=== PATIENT | female | born 1940 | race Caucasian/White ===

== ENCOUNTER 2019-07-26 08:49 | Day surgery (SDC) | payer OTHER ==
[2019-07-26] MEDS ORDERED: Ringers Lactate 1,000 ML IV ONE (09:45)
[2019-07-26] MEDS ORDERED: CEFAZOLIN/SWI 1gm 1 GM/10 ML SYR ONE (09:46)
[2019-07-26] MEDS ORDERED: propofoL 200 MG/20 ML VIAL IV ONE (10:20)
[2019-07-26] MEDS ORDERED: FENTANYL CITR 100 MCG/2 ML ONE ×2 (10:21→10:53)
[2019-07-26] MEDS ORDERED: ONDANSETRON 4 MG/2 ML VIAL ONE (10:24)
[2019-07-26] MEDS ORDERED: LIDOCAINE 1% MPF 2 ML AMPULE ONE (10:35)
[2019-07-26] MEDS ORDERED: dexAMETHasone 10 MG/ML VIAL ONE (10:47)
[2019-07-26] MEDS ORDERED: GLYCOPYRROLATE 0.2 MG/ML SYR ONE (11:07)
[2019-07-26] MEDS ORDERED: PROMETHAZINE INJ 25 MG/ML AMP ONE (11:39)
[2019-07-26 13:32] VITALS: TEMP 98.6
[2019-07-26 15:01] VITALS: BP 154/82; O2SAT 96
--- NOTE | 2019-07-26 21:52 | OP ---
Date of Procedure: 07/26/2019 Surgeon: Allen Patel MD Preoperative Diagnosis: Right groin mass. Postoperative Diagnosis: Right groin mass. Procedure: Wide excision, right groin mass, 14.5 cm x 7.5 cm with layered closure and frozen section . Estimated Blood Loss: Minimal. Specimen: Right groin mass. Findings: Margins to be free. Anesthesia: General. Complications: None. Disposition: Patient tolerated the procedure in stable condition, taken to Recovery in good general condition. Procedure In Detail: Patient was brought to the OR and placed in supine position. General anesthesi a was begun. Patient was prepped and draped in usual sterile fashion and then Marcaine 0.5% was infi ltrated locally. Then 15-blade was used to make a 14.5 x 7.5 cm to excise this large 5 cm ulcerated mass with negative margins grossly. Subcutaneous tissue divided, and deep to the subcutaneous tissue , the base of the mass excised and sent to Pathology and it was evaluated in the lab and the margins were free and then wound irrigated and bleeding controlled with cautery. Flaps created. A Rafael d rain quarter-inch placed to secure with 3-0 nylon, 2-0 chromic used to approximate subcutaneous tissu e, and wilian used to close the skin. Sterile dressing was applied. Patient was awakened and taken to Recovery in good general condition. Discharge Note: The patient going to Day Surgery, then home when stable. Disposition: Home. Condition: Stable. Discharge Instructions: Resume home medications and diet. Activity as tolerated. Keep dressing claudine an and dry, reinforce p.r.n. Ultracet 1 tablet p.o. q.4 p.r.n. pain and Keflex 500 mg p.o. q.8. I w ill see the patient next week at the long-term. /MODL Voice ID: [id number] Report ID: [id number]
== END 2019-07-26 14:35 | disposition home or self-care (01) ==
LOC: OR 08:49
PROVIDERS: ATTEND Surgery
PROC: 0HBAXZZ Excision of Inguinal Skin, External Approach (ICD-10-PCS; principal; 2019-07-26 10:30)
DX: C44.599 Other specified malignant neoplasm of skin of other part of trunk (principal); I10 Essential (primary) hypertension; Z88.6 Allergy status to analgesic agent; Z88.8 Allergy status to other drugs, medicaments and biological substances
CPT/HCPCS: 88305; 11606; J2704; J2550; J3010 ×2; J1100; J2001; J0690; J7120; J2405

== ENCOUNTER 2019-10-02 08:15 | Emergency (ER) | payer OTHER ==
--- NOTE | 2019-10-02 08:49 | RAD REPORT ---
EXAM DESCRIPTION: CT - Head Brain Wo Cont - 10/02/2019 8:41 am CLINICAL HISTORY: HEADACHE Headache, drowsiness COMPARISON: HEAD BRAIN W O CONTRAST dated 11/16/2009 TECHNIQUE: All CT scans are performed using dose optimization technique as appropriate and may inclu de automated exposure control or mA/KV adjustment according to patient size. FINDINGS: No intracranial hemorrhage, hydrocephalus or extra-axial fluid collection.Moderate general ized brain atrophy is present with mild periventricular and deep white matter chronic microvascular i schemic changes.No areas of brain edema or evidence of midline shift. The paranasal sinuses and mastoids are clear. The calvarium is intact. IMPRESSION: No acute intracranial abnormality.
--- NOTE | 2019-10-02 09:17 | RAD REPORT ---
EXAM DESCRIPTION: RAD - Knee Right 3 View - 10/02/2019 9:08 am CLINICAL HISTORY: PAIN COMPARISON: No comparisons FINDINGS: Severe tricompartmental osteoarthritis is present. No gross evidence of acute fracture. No significant joint effusion.
--- NOTE | 2019-10-02 09:17 | RAD REPORT ---
EXAM DESCRIPTION: RAD - Knee Left 3 View - 10/02/2019 9:08 am CLINICAL HISTORY: PAIN Fall, pain COMPARISON: No comparisons FINDINGS: Advanced tricompartmental osteoarthritis is present, greatest involving the lateral compar tment. No acute fracture or dislocation. Trace suprapatellar joint effusion.
--- NOTE | 2019-10-02 09:43 | ER ---
Nurse's Notes [facility] Name: Rosa Nuñez Age: 79 yrs Sex: Female : 1940 Arrival Date: 10/02/2019 Time: 08:17 Bed 6 Private MD: Diagnosis: Fall from bed;Unspecified superficial injury of unspecified part of head;Pain in right knee;Pain in left knee Presentation: 10/01 08:18 Chief complaint: EMS states: UNWITNESSED FALL, NO LOC, NO BLOOD THINNERS. Coronavirus bp screen: Proceed with normal triage. Ebola Screen: No symptoms or risks identified at this time. Initial Sepsis Screen: Does the patient meet any 2 criteria? No. Patient's initial sepsis screen is negative. Does the patient have a suspected source of infection? No. Patient's initial sepsis screen is negative. Risk Assessment: Do you want to hurt yourself or someone else? Patient reports no desire to harm self or others. Onset of symptoms was October 02, 2019 at 05:45. 08:18 Method Of Arrival: EMS: [facility] bp 08:18 Acuity: JOANN 4 bp Triage Assessment: 08:21 General: Appears in no apparent distress. comfortable, Behavior is cooperative, bp appropriate for age, anxious. Pain: Complains of pain in GENERALIZED. EENT: No deficits noted. Neuro: No deficits noted. Cardiovascular: No deficits noted. Respiratory: No deficits noted. GI: No signs and/or symptoms were reported involving the gastrointestinal system. : No signs and/or symptoms were reported regarding the genitourinary system. Derm: No deficits noted. Musculoskeletal: No deficits noted. Injury Description: Bruise sustained to scalp. Historical: - Allergies: 08:21 Codeine; bp 08:21 NSAIDS; bp - PMHx: 08:21 Hyperlipidemia; Depression; Anxiety; Panic Attacks; Hypertension; OCD; GERD; bp - Immunization history:: Adult Immunizations up to date. - Social history:: Smoking status: Patient denies any tobacco usage or history of. Screenin:23 Abuse screen: Denies threats or abuse. Denies injuries from another. Nutritional bp screening: No deficits noted. Tuberculosis screening: No symptoms or risk factors identified. Fall Risk Fall in past 12 months (25 points). Secondary diagnosis (15 points) dementia, impaired mobility. Assessment: 08:23 General: SEE TRIAGE NOTE. bp 09:10 Reassessment: ALL CURRENT ORDERS COMPLETED, RAD RESULTS PENDING. NO S/S ACUTE DISTRESS bp AT THIS TIME. 09:52 Reassessment: PT [facility] CONTACTED FOR TRANSPORT HOME. W/C VAN PENDING. bp 10:19 Reassessment: [facility] AT B/S. PT OSITO. bp Vital Signs: 08:18 BP 154 / 53; Pulse 85; Resp 16; Temp 97.8; Pulse Ox 95% ; bp 09:10 BP 157 / 74; Pulse 75; Resp 17; Pulse Ox 95% ; bp 09:42 BP 163 / 80; Pulse 78; Resp 17; Pulse Ox 95% ; sv ED Course: 08:17 Patient arrived in ED. bp 08:17 Esvin Crow NP is PHCP. pm1 08:17 Lopez Oreilly MD is Attending Physician. pm1 08:19 Triage completed. bp 08:21 Arm band placed on. bp 08:23 Patient has correct armband on for positive identification. Bed in low position. Call bp light in reach. Side rails up X2. 08:40 CT Head Brain wo Cont In Process Unspecified. EDMS 08:42 Moses Mcgill, FARIBA is Primary Nurse. bp 09:08 Knee Left 3 View XRAY In Process Unspecified. EDMS 09:09 Knee Right 3 View XRAY In Process Unspecified. EDMS 09:53 No provider procedures requiring assistance completed. Patient did not have IV access bp during this emergency room visit. Administered Medications: No medications were administered Outcome: 09:43 Discharge ordered by MD. pm1 09:53 [facility] to jail. Report called to [facility] bp 09:53 Condition: stable 09:53 Discharge instructions given to jail, Instructed on discharge instructions, follow up and referral plans. Demonstrated understanding of instructions, follow-up care. 10:20 Patient left the ED. bp Signatures: Dispatcher [employer] EDMonserrat Mi, FARIBA RN Esvin Crow NP [employer] pm1 Moses Mcgill, FARIBA RN bp
--- NOTE | 2019-10-02 09:44 | EDPHYS ---
Physician Documentation [facility] Name: Rosa Nuñez Age: 79 yrs Sex: Female : 1940 Arrival Date: 10/02/2019 Time: 08:17 Bed 6 Private MD: ED Physician Lopez Oreilly HPI: 10/01 08:25 This 79 yrs old Female presents to ER via EMS with complaints of Fall Injury. pm1 08:25 Details of fall: The patient fell from a height, Bed. Onset: The symptoms/episode pm1 began/occurred this morning, 2 day(s) ago. Associated injuries: The patient sustained injury to the head, contusion, bilateral knees. chronic bilateral knee pain. The patient has not recently seen a physician. Patient fell out of bed this AM at the care home around 0630. Patient alert and oriented. complaining of pain to posterior right side of head and bilateral knee pain. No LOC. No neck pain. Historical: - Allergies: 08:21 Codeine; bp 08:21 NSAIDS; bp - PMHx: 08:21 Hyperlipidemia; Depression; Anxiety; Panic Attacks; Hypertension; OCD; GERD; bp - Immunization history:: Adult Immunizations up to date. - Social history:: Smoking status: Patient denies any tobacco usage or history of. ROS: 08:25 Constitutional: Negative for fever, chills, and weight loss, Neck: Negative for injury, pm1 pain, and swelling, Cardiovascular: Negative for chest pain, palpitations, and edema, Respiratory: Negative for shortness of breath, cough, wheezing, and pleuritic chest pain, Abdomen/GI: Negative for abdominal pain, nausea, vomiting, diarrhea, and constipation, Back: Negative for injury and pain. 08:25 Skin: Negative for injury, rash, and discoloration. 08:25 MS/extremity: Positive for pain, of the right knee and left knee, Negative for contusion, decreased range of motion, deformity. 08:25 Neuro: Positive for headache, Negative for loss of consciousness, numbness, tingling. Exam: 08:25 Constitutional: This is a well developed, well nourished patient who is awake, alert, pm1 and in no acute distress. Head/Face: Normocephalic, atraumatic. Neck: Trachea midline, no thyromegaly or masses palpated, and no cervical lymphadenopathy. Supple, full range of motion without nuchal rigidity, or vertebral point tenderness. No Meningismus. Chest/axilla: Normal chest wall appearance and motion. Nontender with no deformity. No lesions are appreciated. 08:25 Back: No spinal tenderness. No costovertebral tenderness. Full range of motion. Skin: Warm, dry with normal turgor. Normal color with no rashes, no lesions, and no evidence of cellulitis. MS/ Extremity: Pulses equal, no cyanosis. Neurovascular intact. Full, normal range of motion. 08:25 Cardiovascular: Exam negative for acute changes, Rate: normal, Rhythm: regular, Pulses: no pulse deficits are appreciated, Edema: is not appreciated. 08:25 Respiratory: Exam negative for acute changes, respiratory distress, shortness of breath. 08:25 Abdomen/GI: Exam negative for acute changes, Inspection: abdomen appears normal, Palpation: abdomen is soft and non-tender, in all quadrants. 08:25 Musculoskeletal/extremity: Extremities: noted in the right knee: tenderness, noted in the left knee: no evidence of tenderness, ROM: intact in all extremities. 08:25 Neuro: Exam negative for acute changes, Orientation: is normal, Mentation: is normal, Motor: is normal, moves all fours, Sensation: is normal, no obvious gross deficits. Vital Signs: 08:18 BP 154 / 53; Pulse 85; Resp 16; Temp 97.8; Pulse Ox 95% ; bp 09:10 BP 157 / 74; Pulse 75; Resp 17; Pulse Ox 95% ; bp 09:42 BP 163 / 80; Pulse 78; Resp 17; Pulse Ox 95% ; sv MDM: 08:19 Patient medically screened. pm1 09:40 Counseling: I had a detailed discussion with the patient and/or guardian regarding: the pm1 historical points, exam findings, and any diagnostic results supporting the discharge/admit diagnosis, radiology results. 09:40 Data reviewed: vital signs. Data interpreted: Pulse oximetry: on room air is 95 %. pm1 Interpretation: normal. 09:40 Counseling: I had a detailed discussion with the patient and/or guardian regarding: the pm1 need for outpatient follow up, to return to the emergency department if symptoms worsen or persist or if there are any questions or concerns that arise at home. 10/01 08:20 Order name: CT Head Brain wo Cont; Complete Time: 09:27 pm1 10/01 08:20 Order name: Knee Left 3 View XRAY; Complete Time: 09:27 pm1 10/01 08:20 Order name: Knee Right 3 View XRAY; Complete Time: 09:27 pm1 Administered Medications: No medications were administered Disposition: 20:23 Co-signature as Attending Physician, Lopez Oreilly MD I agree with the assessment and bibiana plan of care. Disposition: 10/02/19 09:43 Discharged to Home. Impression: Fall from bed, Unspecified superficial injury of unspecified part of head, Pain in right knee, Pain in left knee. - Condition is Stable. - Discharge Instructions: Contusion, Facial or Scalp Contusion, Head Injury, Adult, Fall Prevention in the Home, Knee Pain. - Medication Reconciliation Form, Thank You Letter, Antibiotic Education, Prescription Opioid Use form. - Follow up: Emergency Department; When: As needed; Reason: Worsening of condition. Follow up: Private Physician; When: 2 - 3 days; Reason: Recheck today's complaints, Continuance of care, Re-evaluation by your physician. - Problem is new. - Symptoms have improved. Signatures: Dispatcher [employer] EDTN Lopez Oreilly MD MD cha Marinas, Patrick, ESTHETICIAN/SKIN THERAPIST ESTHETICIAN/SKIN THERAPIST pm1 Moses Mcgill, RN RN bp Corrections: (The following items were deleted from the chart) 10:20 09:43 10/02/2019 09:43 Discharged to Home. Impression: Fall from bed; Unspecified bp superficial injury of unspecified part of head; Pain in right knee; Pain in left knee. Condition is Stable. Forms are Medication Reconciliation Form, Thank You Letter, Antibiotic Education, Prescription Opioid Use. Follow up: Emergency Department; When: As needed; Reason: Worsening of condition. Follow up: Private Physician; When: 2 - 3 days; Reason: Recheck today's complaints, Continuance of care, Re-evaluation by your physician. Problem is new. Symptoms have improved. pm1
[2019-10-02 10:30] VITALS: TEMP 97.8; O2SAT 95
[2019-10-02 10:33] VITALS: BP 163/80
== END 2019-10-02 10:20 | disposition home or self-care (01) ==
LOC: SUPCPDRO 08:15 → ER 08:15
DX: S00.90XA Unspecified superficial injury of unspecified part of head, initial encounter (principal); M25.562 Pain in left knee; M25.561 Pain in right knee; W06.XXXA Fall from bed, initial encounter; Y93.89 Activity, other specified; Y92.122 Bedroom in nursing home as the place of occurrence of the external cause; Z88.5 Allergy status to narcotic agent; Z88.6 Allergy status to analgesic agent; I10 Essential (primary) hypertension
CPT/HCPCS: 70450; 99283

== ENCOUNTER 2021-03-09 07:16 | Emergency (ER) | payer OTHER ==
--- NOTE | 2021-03-09 08:22 | RAD REPORT ---
EXAM DESCRIPTION: CT - Head C Spine Mpr Wo Con - 03/09/2021 8:13 am CLINICAL HISTORY: Head and neck injury status post fall. Head and neck pain COMPARISON: None. TECHNIQUE: Computed axial tomography of the head and cervical spine was obtained. Sagittal and coronal reconstruction was performed. All CT scans are performed using dose optimization technique as appropriate and may include automated exposure control or mA/KV adjustment according to patient size. FINDINGS: An intracranial bleed is not seen. Mild to moderate low-density areas within periventricular, deep and subcortical white matter probably ischemic changes secondary to small vessel disease. The ventricles are normal in caliber. An extra-a xial fluid collection is not noted.Fluid within the visualized sinuses and mastoids is not seen A cervical fracture is not visualized. No dislocation is noted. Scoliosis is present IMPRESSION: No acute intracranial abnormality is seen. A cervical fracture is not visualized. If the patient continues to have symptoms to suggest intracra nial /spinal cord pathology then MRI would be recommended
--- NOTE | 2021-03-09 09:00 | RAD REPORT ---
EXAM DESCRIPTION: RAD - Wrist Left 3 View - 03/09/2021 8:12 am CLINICAL HISTORY: Left wrist pain status post injury FINDINGS: No fracture or dislocation is seen. Osteoporosis If the patient continues to have symptoms to suggest an occult fracture then a followup plain film se lorena in 7 days would be recommended
--- NOTE | 2021-03-09 09:24 | ER ---
Nurse's Notes [facility] Name: Rosa Nuñez Age: 80 yrs Sex: Female : 1940 Arrival Date: 03/09/2021 Time: 07:32 Bed 14 Private MD: Diagnosis: Fall from bed, head injury, left wrist pain/sprain Presentation: 03/09 08:10 Chief complaint: EMS states: Fall, left FA brusing, swelling. bilat ear pain. tc5 Coronavirus screen: Vaccine status: Patient reports being unvaccinated. Ebola Screen: No symptoms or risks identified at this time. Initial Sepsis Screen: Does the patient meet any 2 criteria? No. Patient's initial sepsis screen is negative. Risk Assessment: Do you want to hurt yourself or someone else? Patient reports no desire to harm self or others. Onset of symptoms is unknown. 08:10 Method Of Arrival: EMS tc5 08:10 Acuity: JOANN 3 tc5 09:52 Initial Sepsis Screen: Does the patient have a suspected source of infection? No. tc5 Patient's initial sepsis screen is negative. Triage Assessment: 08:14 General: Appears in no apparent distress. Behavior is calm, cooperative. Pain: Denies tc5 pain. - Immunization history:: Adult Immunizations up to date, Client reports having NOT received the Covid vaccine. - Social history:: Patient/guardian denies using Smoking status: unknown. Screenin:15 Abuse screen: Denies threats or abuse. Denies injuries from another. Nutritional tc5 screening: No deficits noted. Tuberculosis screening: No symptoms or risk factors identified. Fall Risk Assessment: 08:14 Reassessment: Patient appears in no apparent distress at this time. General: EMS report tc5 pt was sent here DT fall not witnessed. NAD noted, left FA has bruised and swollen. pt denies pain at this time.. Vital Signs: 08:10 BP 152 / 77; Pulse 68; Resp 18; Temp 97.1; Pulse Ox 98% ; Weight 65.77 kg; Height 4 ft. tc5 3 in. (129.54 cm); Pain 0/10; 09:49 BP 143 / 78; Pulse 66; Resp 16; Pulse Ox 99% ; Pain 0/10; tc5 08:10 Body Mass Index 39.19 (65.77 kg, 129.54 cm) tc5 ED Course: 07:32 Patient arrived in ED. tc5 07:35 Quinn Zafar MD is Attending Physician. kdr 08:10 Bertha Muhammad, RN is Primary Nurse. tc5 08:12 Forearm Left XRAY In Process Unspecified. EDMS 08:12 Wrist Left (3 View) XRAY In Process Unspecified. EDMS 08:13 CT Head C Spine In Process Unspecified. EDMS 08:13 Triage completed. tc5 09:51 Arm band placed on right wrist. tc5 09:51 No provider procedures requiring assistance completed. tc5 09:52 Patient has correct armband on for positive identification. Bed in low position. Call tc5 light in reach. Side rails up X2. 09:52 Patient did not have IV access during this emergency room visit. tc5 Administered Medications: No medications were administered Outcome: 09:23 Discharge ordered by . kdr 09:51 Condition: stable tc5 09:51 Discharge instructions given to EMS, radiology report with discharge packet. tc5 09:52 Discharged to long-term. Transfer form completed. tc5 10:09 Patient left the ED. tc5 Signatures: Dispatcher [employer] EDMS Quinn Zafar MD MD kdr Bertha Muhammad, RN RN tc5
--- NOTE | 2021-03-09 09:25 | EDPHYS ---
Physician Documentation [facility] Name: Rosa Nuñez Age: 80 yrs Sex: Female : 1940 Arrival Date: 03/09/2021 Time: 07:32 Bed 14 Private MD: ED Physician Quinn Zafar HPI: 03/09 07:45 This 80 yrs old Female presents to ER via Unassigned with complaints of Left kdr wrist injury status post fall. 07:45 Patient reportedly fell out of bed this morning. She states that she was wedged between kdr the bed and the furniture. She complains now of head pain and left wrist pain. She has no other complaints. She is alert and appropriate and does not appear toxic on initial presentation. Onset: The symptoms/episode began/occurred suddenly, this morning. Severity of symptoms: At their worst the symptoms were mild in the emergency department the symptoms are unchanged. The patient has experienced similar episodes in the past, multiple times. The patient has not recently seen a physician. - Immunization history:: Adult Immunizations up to date, Client reports having NOT received the Covid vaccine. - Social history:: Patient/guardian denies using Smoking status: unknown. ROS: 07:45 Constitutional: Negative for fever, chills, and weight loss, Eyes: Negative for injury, kdr pain, redness, and discharge, Neck: Negative for injury, pain, and swelling, Cardiovascular: Negative for chest pain, palpitations, and edema, Respiratory: Negative for shortness of breath, cough, wheezing, and pleuritic chest pain, Abdomen/GI: Negative for abdominal pain, nausea, vomiting, diarrhea, and constipation, Back: Negative for injury and pain, : Negative for injury, bleeding, discharge, and swelling, Skin: Negative for injury, rash, and discoloration, Psych: Negative for depression, anxiety, suicide ideation, homicidal ideation, and hallucinations, Allergy/Immunology: Negative for hives, rash, and allergies, Endocrine: Negative for neck swelling, polydipsia, polyuria, polyphagia, and marked weight changes, Hematologic/Lymphatic: Negative for swollen nodes, abnormal bleeding, and unusual bruising. 07:45 MS/extremity: Positive for injury or acute deformity, pain, swelling, tenderness, of the dorsal aspect of left forearm, left wrist and palmar aspect of left forearm. Exam: 07:45 Constitutional: This is a well developed, well nourished patient who is awake, alert, kdr and in no acute distress. Head/Face: Normocephalic, atraumatic. Except for mild tenderness occipitally Eyes: Pupils equal round and reactive to light, extra-ocular motions intact. Lids and lashes normal. Conjunctiva and sclera are non-icteric and not injected. Cornea within normal limits. Periorbital areas with no swelling, redness, or edema. Neck: Trachea midline, no thyromegaly or masses palpated, and no cervical lymphadenopathy. Supple, full range of motion without nuchal rigidity, or vertebral point tenderness. No Meningismus. Chest/axilla: Normal chest wall appearance and motion. Nontender with no deformity. No lesions are appreciated. Abdomen/GI: Soft, non-tender, with normal bowel sounds. No distension or tympany. No guarding or rebound. No evidence of tenderness throughout. Back: No spinal tenderness. No costovertebral tenderness. Full range of motion. Skin: Warm, dry with normal turgor. Normal color with no rashes, no lesions, and no evidence of cellulitis. Neuro: Awake and alert, GCS 15, oriented to person, place, time, and situation. Cranial nerves II-XII grossly intact. Motor strength 5/5 in all extremities. Sensory grossly intact. Cerebellar exam normal. Normal gait. Psych: Awake, alert, with orientation to person, place and time. Behavior, mood, and affect are within normal limits. 07:45 Musculoskeletal/extremity: Extremities: grossly normal except: noted in the dorsal aspect of left forearm, left wrist and palmar aspect of left forearm: contusion, decreased ROM, pain, swelling, tenderness. Vital Signs: 08:10 BP 152 / 77; Pulse 68; Resp 18; Temp 97.1; Pulse Ox 98% ; Weight 65.77 kg; Height 4 ft. tc5 3 in. (129.54 cm); Pain 0/10; 09:49 BP 143 / 78; Pulse 66; Resp 16; Pulse Ox 99% ; Pain 0/10; tc5 08:10 Body Mass Index 39.19 (65.77 kg, 129.54 cm) tc5 MDM: 07:45 Data reviewed: vital signs, nurses notes, lab test result(s), radiologic studies. kdr Counseling: I had a detailed discussion with the patient and/or guardian regarding: the historical points, exam findings, and any diagnostic results supporting the discharge/admit diagnosis, lab results, radiology results, the need for outpatient follow up. 09:23 Patient medically screened. kdr 03/09 07:45 Order name: CT Head C Spine; Complete Time: 08:38 kdr 03/09 07:45 Order name: Forearm Left XRAY kdr 03/09 07:45 Order name: Wrist Left (3 View) XRAY; Complete Time: 09:18 kdr 03/09 09:21 Order name: Volar Wrist Splint kdr Administered Medications: No medications were administered Disposition Summary: 03/09/21 09:23 Discharge Ordered Location: Home kdr Problem: new kdr Symptoms: have improved kdr Condition: Stable kdr Diagnosis - Fall from bed, head injury, left wrist pain/sprain kdr Followup: kdr - With: Private Physician - When: 2 - 3 days - Reason: If symptoms return, Further diagnostic work-up, Recheck today's complaints, Continuance of care, Re-evaluation by your physician Discharge Instructions: - Discharge Summary Sheet kdr - Wrist Pain, Adult, [id number] kdr - Head Injury, Adult, [id number] kdr - Wrist Sprain, Adult kdr Forms: - Medication Reconciliation Form kdr - Thank You Letter kdr - SBAR form tc5 Signatures: Dispatcher [employer] Quinn Dailey MD MD kdr Bertha Muhammad RN RN tc5
[2021-03-09 10:15] VITALS: TEMP 97.1
[2021-03-09 10:16] VITALS: BP 143/78; O2SAT 99
--- NOTE | 2021-03-10 11:57 | RAD REPORT ---
EXAM DESCRIPTION: RAD - Forearm Left - 03/10/2021 11:51 am CLINICAL HISTORY: Left forearm pain status post injury FINDINGS: No fracture is seen
== END 2021-03-09 10:09 | disposition home or self-care (01) ==
LOC: ER 07:16
DX: S63.502A Unspecified sprain of left wrist, initial encounter (principal); W06.XXXA Fall from bed, initial encounter
CPT/HCPCS: 70450; 72125; 99283

== ENCOUNTER 2022-05-06 08:49 | Emergency (ER) | payer OTHER ==
--- NOTE | 2022-05-06 09:33 | RAD REPORT ---
EXAM DESCRIPTION: CT - CTHCSPWOC - 05/06/2022 9:10 am CLINICAL HISTORY: Trauma, head and neck injury. fall COMPARISON: Head C Spine Mpr Wo Con dated 03/09/2021 TECHNIQUE: Axial 5 mm thick images of the head were obtained. Axial 2 mm thick images of the cervical spine were obtained with sagittal and coronal reconstruction images generated and reviewed. All CT scans are performed using dose optimization technique as appropriate and may include automated exposure control or mA/KV adjustment according to patient size. FINDINGS: CT HEAD WITHOUT CONTRAST: No acute hemorrhage, hydrocephalus or extra-axial collection is identified.Mild generalized brain atr ophy is present with mild periventricular and deep white matter chronic microvascular ischemic change s.No areas of brain edema or midline shift. The paranasal sinuses and mastoids are clear.The calvarium is intact. CT CERVICAL SPINE WITHOUT CONTRAST: No fracture or subluxation.Moderate levoscoliosis is present with degenerative changes.No prevertebra l soft tissues swelling is identified. IMPRESSION: No acute intracranial or cervical spine findings.
--- NOTE | 2022-05-06 09:54 | ER ---
Nurse's Notes [facility] Name: Rosa Nuñez Age: 81 yrs Sex: Female : 1940 Arrival Date: 05/06/2022 Time: 08:49 Bed 18 Private MD: Diagnosis: Fall on same level, unspecified Presentation: 05/06 08:50 Chief complaint: EMS states: [facility] INSISTED SHE COME AFTER NON-TRAUMATIC bp FALL IN SHOWER, PT HAS NO COMPLAINT. Coronavirus screen: At this time, the client does not indicate any symptoms associated with coronavirus-19. Ebola Screen: No symptoms or risks identified at this time. Initial Sepsis Screen: Does the patient meet any 2 criteria? No. Patient's initial sepsis screen is negative. Does the patient have a suspected source of infection? No. Patient's initial sepsis screen is negative. Risk Assessment: Do you want to hurt yourself or someone else? Patient reports no desire to harm self or others. Onset of symptoms was May 06, 2022 at 08:30. 08:50 Method Of Arrival: EMS: [facility] bp 08:50 Acuity: JOANN 3 bp Triage Assessment: 08:52 General: Appears in no apparent distress. comfortable, Behavior is calm, cooperative, bp appropriate for age. Pain: Denies pain. EENT: No deficits noted. Neuro: Level of Consciousness is awake, alert, obeys commands, Oriented to Appropriate for age. Cardiovascular: Rhythm is sinus rhythm. Respiratory: No deficits noted. GI: No signs and/or symptoms were reported involving the gastrointestinal system. : No signs and/or symptoms were reported regarding the genitourinary system. Derm: No deficits noted. Musculoskeletal: Circulation, motion, and sensation intact. Historical: - Allergies: 08:52 Codeine; bp 08:52 NSAIDS; bp - PMHx: 08:52 Anxiety; Depression; GERD; Hyperlipidemia; Hypertension; ocd; Panic Attacks; bp - Immunization history:: Adult Immunizations up to date. - Social history:: Smoking status: Patient denies any tobacco usage or history of. Screenin:53 Abuse screen: Denies threats or abuse. Denies injuries from another. Nutritional bp screening: No deficits noted. Tuberculosis screening: No symptoms or risk factors identified. Fall Risk No fall in past 12 months (0 pts). Assessment: 08:53 General: SEE TRIAGE NOTE. bp 10:19 Reassessment: [facility] CONTACTED FOR TRANSPORT. DC ON HOLD. bp 10:59 Reassessment: TRANSPORT AT B/S. bp Vital Signs: 08:50 BP 108 / 65; Pulse 76; Resp 17; Temp 98; Pulse Ox 98% ; bp 10:19 BP 150 / 66; Pulse 75; Resp 16; Pulse Ox 95% ; bp ED Course: 08:49 Patient arrived in ED. bp 08:51 Jorge A Begum PA is PHCP. [facility] 08:51 Lopez Oreilly MD is Attending Physician. [facility] 08:51 Triage completed. bp 08:53 Arm band placed on. bp 09:11 CT Head C Spine In Process Unspecified. EDMS 09:28 Moses Mcgill, RN is Primary Nurse. bp 10:19 Patient has correct armband on for positive identification. Bed in low position. Call bp light in reach. Side rails up X2. 10:19 No provider procedures requiring assistance completed. Patient did not have IV access bp during this emergency room visit. Administered Medications: No medications were administered Medication: 08:53 VIS not applicable for this client. bp Outcome: 09:53 Discharge ordered by . [facility] 10:59 Discharged to detention. Report called to [facility] bp 10:59 Condition: stable 10:59 Discharge instructions given to patient, detention, Instructed on discharge instructions, follow up and referral plans. Demonstrated understanding of instructions, follow-up care. 11:00 Patient left the ED. bp Signatures: Dispatcher [employer] EDMT Jorge A Begum PA PA jmm Peltier, Brian, RN RN bp
--- NOTE | 2022-05-06 09:54 | EDPHYS ---
Physician Documentation [facility] Name: Rosa Nuñez Age: 81 yrs Sex: Female : 1940 Arrival Date: 05/06/2022 Time: 08:49 Bed 18 Private MD: ED Physician Lopez Oreilly HPI: 05/06 09:01 This 81 yrs old Female presents to ER via EMS with complaints of Fall Injury. jmm 09:01 Onset: The symptoms/episode began/occurred acutely, just prior to arrival. Associated [facility] injuries: The patient sustained no obvious injury. It is unknown whether or not the patient has had similar symptoms in the past. This is a 81 year old female with a history of anxiety, gerd, hlp that presents to the ED with no complaints. Patient states she fell in the shower. Denies headache, neck pain, chest pain, abdominal pain, lower extremity pain. . Historical: - Allergies: 08:52 Codeine; bp 08:52 NSAIDS; bp - PMHx: 08:52 Anxiety; Depression; GERD; Hyperlipidemia; Hypertension; ocd; Panic Attacks; bp - Immunization history:: Adult Immunizations up to date. - Social history:: Smoking status: Patient denies any tobacco usage or history of. ROS: 09:01 Constitutional: Negative for fever, chills, and weight loss, Cardiovascular: Negative jmm for chest pain, palpitations, and edema, Respiratory: Negative for shortness of breath, cough, wheezing, and pleuritic chest pain. 09:01 All other systems are negative. Exam: 09:01 Constitutional: This is a well developed, well nourished patient who is awake, alert, jmm and in no acute distress. Head/Face: atraumatic. Eyes: EOMI, no conjunctival erythema appreciated ENT: Moist Mucus Membranes Neck: Trachea midline, Supple Chest/axilla: Normal chest wall appearance and motion. Cardiovascular: Regular rate and rhythm. No edema appreciated Respiratory: Normal respirations, no respiratory distress appreciated Abdomen/GI: Non distended Back: Normal ROM Skin: General appearance color normal 09:01 Musculoskeletal/extremity: ROM: intact in all extremities. 09:01 Skin: Appearance: Color: normal in color. 09:01 Neuro: Motor: is normal. 09:01 Psych: Behavior/mood is pleasant, cooperative. Vital Signs: 08:50 BP 108 / 65; Pulse 76; Resp 17; Temp 98; Pulse Ox 98% ; bp 10:19 BP 150 / 66; Pulse 75; Resp 16; Pulse Ox 95% ; bp MDM: 08:58 Patient medically screened. [facility] 09:49 Data reviewed: vital signs, nurses notes. Counseling: I had a detailed discussion with aleksandar the patient and/or guardian regarding: the historical points, exam findings, and any diagnostic results supporting the discharge/admit diagnosis, radiology results, the need for outpatient follow up, to return to the emergency department if symptoms worsen or persist or if there are any questions or concerns that arise at home. 05/06 08:59 Order name: CT Head C Spine; Complete Time: 09:33 [facility] Administered Medications: No medications were administered Disposition Summary: 05/06/22 09:53 Discharge Ordered Location: Home [facility] Condition: Stable [facility] Diagnosis - Fall on same level, unspecified [facility] Followup: [facility] - With: Private Physician - When: 2 - 3 days - Reason: Recheck today's complaints, Continuance of care, Re-evaluation by your physician Discharge Instructions: - Discharge Summary Sheet [facility] - Fall Prevention in the Home, Adult [facility] Forms: - Medication Reconciliation Form [facility] - Thank You Letter [facility] - Antibiotic Education [facility] - Prescription Opioid Use [facility] Addendum: 05/10/2022 15:01 Co-signature as Attending Physician, Lopez Oreilly MD I agree with the assessment and c patel plan of care. Signatures: Dispatcher [employer] Lopez Lopez MD MD cha Mickail, Joel, PA PA Moses Field, RN RN bp
[2022-05-06 11:04] VITALS: TEMP 98
[2022-05-06 11:05] VITALS: BP 150/66; O2SAT 95
== END 2022-05-06 11:00 | disposition home or self-care (01) ==
LOC: ER 08:49
DX: Z04.3 Encounter for examination and observation following other accident (principal); W18.2XXA Fall in (into) shower or empty bathtub, initial encounter
CPT/HCPCS: 70450; 72125; 99284

== ENCOUNTER 2022-07-15 18:18 | Inpatient (IN) | payer OTHER ==
--- NOTE | 2022-07-15 19:02 | ER ---
Nurse's Notes [facility] Name: Rosa Nuñez Age: 81 yrs Sex: Female : 1940 Arrival Date: 07/15/2022 Time: 18:19 Bed 6 Private MD: Diagnosis: Chest pain, unspecified;Weakness;Anorexia;Obesity, unspecified;Other cholelithiasis without obstruction Presentation: 07/15 18:26 Chief complaint: EMS states: called out for CP. Upon arrival, pt denies CP, but states ss that she has not been eating well the past few days. Coronavirus screen: Client denies travel out of the [place] in the last 14 days. Ebola Screen: Patient denies exposure to infectious person. Patient denies travel to an Ebola-affected area in the 21 days before illness onset. Initial Sepsis Screen: Does the patient meet any 2 criteria? No. Patient's initial sepsis screen is negative. Does the patient have a suspected source of infection? No. Patient's initial sepsis screen is negative. Risk Assessment: Do you want to hurt yourself or someone else? Patient reports no desire to harm self or others. Onset of symptoms is unknown. 18:26 Method Of Arrival: EMS: [facility] ss 18:26 Acuity: JOANN 3 ss Historical: - Allergies: 18:28 Codeine; ss 18:28 NSAIDS; ss - PMHx: 18:28 Anxiety; Depression; GERD; Hyperlipidemia; Hypertension; ocd; Panic Attacks; ss - Immunization history:: Adult Immunizations unknown. - Family history:: not pertinent. - Social history:: Smoking status: Patient denies any tobacco usage or history of. Screenin:04 [facility] ED Fall Risk Assessment (Adult) Impaired Gait. Abuse screen: Denies injuries tw5 from another. Nutritional screening: No deficits noted. Tuberculosis screening: No symptoms or risk factors identified. Assessment: 21:02 General: Appears in no apparent distress. Behavior is calm, cooperative. Pain: Denies tw5 pain. 21:04 General: Reports "I am not in any pain, but I do feel like crying. I dont want to go tw5 home.". Cardiovascular: Capillary refill < 3 seconds. 21:07 General: Patient is hard of hearing. tw5 22:03 Pain: Pain does not radiate. tw5 22:03 Pain: Pain began. tw5 Vital Signs: 18:28 BP 115 / 83 (/pedi); Pulse 68; Resp 17; Temp 97.8(TE); Pulse Ox 100% on R/A; Pain 0/10; ss 20:17 Weight 57.5 kg; kd3 21:02 BP 120 / 70; Pulse 73; Resp 16; Pulse Ox 99% on R/A; tw5 21:25 BP 116 / 97; Pulse 76; Resp 17; Pulse Ox 100% on R/A; tw5 18:28 L wrist ss ED Course: 18:19 Patient arrived in ED. kc6 18:28 Triage completed. ss 18:28 Arm band placed on right wrist. ss 18:37 Lopez Oreilly MD is Attending Physician. [facility] 19:00 Everardo Martin MD is Hospitalizing Provider. [facility] 19:03 Initial lab(s) drawn, by fl, sent to lab. Inserted saline lock: 20 gauge in right vg1 antecubital area, using aseptic technique. Blood collected. Patient maintains SpO2 saturation greater than 95% on room air. 20:15 Ricarda Foy, RN is Primary Nurse. kd3 21:07 Patient has correct armband on for positive identification. Placed in gown. Bed in low tw5 position. Call light in reach. Side rails up X 1. Client placed on continuous cardiac and pulse oximetry monitoring. NIBP monitoring applied. Door closed. Noise minimized. Moved to private room. Warm blanket given. Verbal reassurance given. 21:07 No provider procedures requiring assistance completed. tw5 21:08 Basic Metabolic Panel Sent. tw 21:08 CBC with Diff Sent. tw 21:08 LFT's Sent. tw5 21:08 Magnesium Sent. tw 21:08 NT PRO-BNP Sent. tw 21:08 PT-INR Sent. tw5 21:08 Troponin HS Sent. tw5 22:03 Patient admitted, IV remains in place. tw Administered Medications: 20:59 Drug: NS 0.9% 500 ml Route: IV; Rate: bolus; Site: right antecubital; tw5 20:59 Drug: NS 0.9% 1000 ml Route: IV; Rate: 125 ml/hr; Site: right antecubital; tw5 21:01 Drug: Pepcid (famotidine) 20 mg Route: IVP; Site: right antecubital; tw5 21:04 Drug: Lopressor (metoprolol TARTRATE)) 25 mg Route: PO; 21:08 Drug: Aspirin Chewable Tablet 162 mg Route: PO; 21:10 Drug: Lovenox (enoxaparin) 1 mg/kg Route: Sub-Q; Site: abdomen; tw5 21:41 Drug: Zosyn (piperacillin-tazobactam) 3.375 grams Route: IVPB; Infused Over: 60 mins; 5 Site: right antecubital; Medication: 21:02 VIS not applicable for this client. Outcome: 19:01 Decision to Hospitalize by Provider. bibiana 21:07 Condition: stable 21:14 Admitted to Med/surg 21:14 Instructed on the need for admit. 22:04 Patient left the ED. Signatures: Lopez Oreilly MD MD cha Smirch, Shelby, RN RN ss Garcia, Victoria RN RN [email or web address] Gertrudis Espinal 5 Ricarda Foy, FARIBA RN kd3 Antoinette Morfin RN RN kc6
--- NOTE | 2022-07-15 19:02 | EDPHYS ---
Physician Documentation [facility] Name: Rosa Nuñez Age: 81 yrs Sex: Female : 1940 Arrival Date: 07/15/2022 Time: 18:19 Bed 6 Private MD: ED Physician Lopez Oreilly HPI: 07/15 18:55 This 81 yrs old Female presents to ER via EMS with complaints of Chest Pain, bibiana Decreased Appetite. 18:55 The patient or guardian reports chest pain that is located primarily in the substernal bibiana area, anterior chest wall, bilaterally. Onset: just prior to arrival. The pain does not radiate. Associated signs and symptoms: The patient has no apparent associated signs or symptoms. The chest pain is described as a pressure. Modifying factors: The symptoms are alleviated by nothing. the symptoms are aggravated by nothing. Severity of pain: At its worst the pain was mild in the emergency department the pain is unchanged. The patient has not experienced similar symptoms in the past. Historical: - Allergies: 18:28 Codeine; ss 18:28 NSAIDS; ss - PMHx: 18:28 Anxiety; Depression; GERD; Hyperlipidemia; Hypertension; ocd; Panic Attacks; ss - Immunization history:: Adult Immunizations unknown. - Family history:: not pertinent. - Social history:: Smoking status: Patient denies any tobacco usage or history of. ROS: 18:55 Constitutional: Negative for fever, chills, and weight loss, Eyes: Negative for injury, bibiana pain, redness, and discharge, ENT: Negative for injury, pain, and discharge, Neck: Negative for injury, pain, and swelling, Respiratory: Negative for shortness of breath, cough, wheezing, and pleuritic chest pain, Back: Negative for injury and pain, : Negative for injury, bleeding, discharge, and swelling, MS/Extremity: Negative for injury and deformity, Skin: Negative for injury, rash, and discoloration, Neuro: Negative for headache, weakness, numbness, tingling, and seizure, Psych: Negative for depression, anxiety, suicide ideation, homicidal ideation, and hallucinations, Allergy/Immunology: Negative for hives, rash, and allergies, Endocrine: Negative for neck swelling, polydipsia, polyuria, polyphagia, and marked weight changes, Hematologic/Lymphatic: Negative for swollen nodes, abnormal bleeding, and unusual bruising. 18:55 Cardiovascular: Positive for chest pain. 18:55 Abdomen/GI: Positive for anorexia. Exam: 18:55 Constitutional: This is a well developed, well nourished patient who is awake, alert, bibiana and in no acute distress. Head/Face: Normocephalic, atraumatic. Eyes: Pupils equal round and reactive to light, extra-ocular motions intact. Lids and lashes normal. Conjunctiva and sclera are non-icteric and not injected. Cornea within normal limits. Periorbital areas with no swelling, redness, or edema. ENT: Nares patent. No nasal discharge, no septal abnormalities noted. Tympanic membranes are normal and external auditory canals are clear. Oropharynx with no redness, swelling, or masses, exudates, or evidence of obstruction, uvula midline. Mucous membranes moist. Neck: Trachea midline, no thyromegaly or masses palpated, and no cervical lymphadenopathy. Supple, full range of motion without nuchal rigidity, or vertebral point tenderness. No Meningismus. Chest/axilla: Normal chest wall appearance and motion. Nontender with no deformity. No lesions are appreciated. Cardiovascular: Regular rate and rhythm with a normal S1 and S2. No gallops, murmurs, or rubs. Normal PMI, no JVD. No pulse deficits. Respiratory: Lungs have equal breath sounds bilaterally, clear to auscultation and percussion. No rales, rhonchi or wheezes noted. No increased work of breathing, no retractions or nasal flaring. Abdomen/GI: Soft, non-tender, with normal bowel sounds. No distension or tympany. No guarding or rebound. No evidence of tenderness throughout. Back: No spinal tenderness. No costovertebral tenderness. Full range of motion. Skin: Warm, dry with normal turgor. Normal color with no rashes, no lesions, and no evidence of cellulitis. MS/ Extremity: Pulses equal, no cyanosis. Neurovascular intact. Full, normal range of motion. Neuro: Awake and alert, GCS 15, oriented to person, place, time, and situation. Cranial nerves II-XII grossly intact. Motor strength 5/5 in all extremities. Sensory grossly intact. Cerebellar exam normal. Normal gait. Psych: Awake, alert, with orientation to person, place and time. Behavior, mood, and affect are within normal limits. 18:55 ECG was reviewed by the Attending Physician. Vital Signs: 18:28 BP 115 / 83 (/pedi); Pulse 68; Resp 17; Temp 97.8(TE); Pulse Ox 100% on R/A; Pain 0/10; ss 20:17 Weight 57.5 kg; kd3 21:02 BP 120 / 70; Pulse 73; Resp 16; Pulse Ox 99% on R/A; tw5 21:25 BP 116 / 97; Pulse 76; Resp 17; Pulse Ox 100% on R/A; tw5 18:28 L wrist ss MDM: 18:37 Patient medically screened. bibiana 19:02 Differential diagnosis: abnormal EKG, acute myocardial infarction, acute pericarditis, bibiana anxiety, chest wall pain, esophagitis, hiatal hernia, pancreatitis, pleurisy, pneumonia, pneumothorax, stable angina, thoracic aortic disection, unstable angina. HEART Score: History: Moderately Suspicious (1), ECG: Non specific repolarization disturbance / LBTB / PM (1), Age: > or = 65 years (2), Risk Factors: > or = 3 Risk factors for atherosclerotic disease (2), [Hypercholesterolemia] [Hypertension] [+ Family HX] [Obesity] Troponin: < or = 1 x Normal Limit (0). The patient was given aspirin in the Emergency Department. JONNY Risk Score: 1 - patient's age is greater or equal to 65 years, 1 - Three or more CAD risk factors, TOTAL SCORE = 2. Data reviewed: vital signs, nurses notes, EMS record, lab test result(s), EKG, radiologic studies, plain films. Consideration of Admission/Observation Patient was admitted/placed on observation. Management of patient was discussed with the following: Primary Care Provider: DR CARTER, OBS TELE. Test considered but Not performed: CT: CT CHEST RO PE. External Records Reviewed: Outpatient record: RESIDENTIAL. Care significantly affected by the following chronic conditions: Hypertension, Obesity, GERD, ANXIETY, HYPERLIPIDEMIA. Counseling: I had a detailed discussion with the patient and/or guardian regarding: the historical points, exam findings, and any diagnostic results supporting the discharge/admit diagnosis, the presence of at least one elevated blood pressure reading (>120/80) during this emergency department visit, lab results, the need for further work-up and treatment in the hospital. 07/15 18:39 Order name: Basic Metabolic Panel [facility] 07/15 18:39 Order name: CBC with Diff [facility] 07/15 18:39 Order name: LFT's [facility] 07/15 18:39 Order name: Magnesium [facility] 07/15 18:39 Order name: NT PRO-BNP [facility] 07/15 18:39 Order name: PT-INR [facility] 07/15 18:39 Order name: Troponin HS [facility] 07/15 18:39 Order name: Lipase [facility] 07/15 18:39 Order name: COVID-19/FLU A+B [facility] 07/15 18:39 Order name: Urine Culture [facility] 07/15 18:55 Order name: Depakote [facility] 07/15 19:17 Order name: CBC with Automated Diff; Complete Time: 19:28 EDMS 07/15 20:14 Interpretation: Normal except: RDW 15.3. 07/15 19:19 Order name: Protime (+INR); Complete Time: 19:28 EDMS 07/15 19:50 Order name: COVID-19/FLU A+B; Complete Time: 20:13 EDMS 07/15 18:39 Order name: XRAY Chest (1 view) [facility] 07/15 19:25 Order name: RAD; Complete Time: 19:28 EDMS 07/15 19:28 Order name: INCENTIVE SPIROMETRY [facility] 07/15 20:07 Order name: Basic Metabolic Panel; Complete Time: 20:13 EDMS 07/15 20:13 Interpretation: Normal except: NA 133; CL 97; BUN 23; GFR 62. 07/15 20:07 Order name: Liver (Hepatic) Function; Complete Time: 20:13 EDMS 07/15 20:14 Interpretation: Normal except: AST 62; BILID 0.4; TP 6.3; ALB 2.9; A/G 0.9. 07/15 20:07 Order name: Troponin High Sensitivity; Complete Time: 20:13 EDMS 07/15 20:07 Order name: NT PRO-BNP; Complete Time: 20:13 EDMS 07/15 20:14 Interpretation: Abnormal: NT PRO-BNP 1500. 07/15 20:07 Order name: Magnesium; Complete Time: 20:13 EDMS 07/15 20:07 Order name: Lipase; Complete Time: 20:13 EDMS 07/15 20:16 Order name: US Abdomen Limited 07/15 20:28 Order name: Valproic Acid (Depakene) Level [facility] 07/15 21:28 Order name: US [facility] 07/15 18:39 Order name: EKG; Complete Time: 18:40 [facility] 07/15 18:39 Order name: Cardiac monitoring; Complete Time: 18:50 [facility] 07/15 18:39 Order name: EKG - Nurse/Tech; Complete Time: 18:50 [facility] 07/15 18:39 Order name: IV Saline Lock; Complete Time: 19:11 [facility] 07/15 18:39 Order name: Labs collected and sent; Complete Time: 19:11 [facility] 07/15 18:39 Order name: O2 Per Protocol; Complete Time: 19:11 [facility] 07/15 18:39 Order name: O2 Sat Monitoring; Complete Time: 19:11 [facility] 07/15 18:39 Order name: Urine Dipstick-Ancillary (obtain specimen) [facility] EC:55 Rate is 63 beats/min. Rhythm is regular. QRS [place] is Normal. HI interval is normal. QRS bibiana interval is normal. QT interval is normal. No Q waves. T waves are Normal. No ST changes noted. Clinical impression: NSR w/ Non-specific ST/T Changes and No evidence of ischemia. Interpreted by me. Reviewed by me. Administered Medications: 20:59 Drug: NS 0.9% 500 ml Route: IV; Rate: bolus; Site: right antecubital; tw5 20:59 Drug: NS 0.9% 1000 ml Route: IV; Rate: 125 ml/hr; Site: right antecubital; tw5 21:01 Drug: Pepcid (famotidine) 20 mg Route: IVP; Site: right antecubital; tw5 21:04 Drug: Lopressor (metoprolol TARTRATE)) 25 mg Route: PO; tw5 21:08 Drug: Aspirin Chewable Tablet 162 mg Route: PO; tw5 21:10 Drug: Lovenox (enoxaparin) 1 mg/kg Route: Sub-Q; Site: abdomen; tw5 21:41 Drug: Zosyn (piperacillin-tazobactam) 3.375 grams Route: IVPB; Infused Over: 60 mins; tw5 Site: right antecubital; Disposition Summary: 07/15/22 19:01 Hospitalization Ordered Hospitalization Status: Observation [facility] Provider: Everardo Carter cha Location: Telemetry/MedSurg (observation) bibiana Condition: Fair bibiana Problem: new bibiana Symptoms: have improved bibiana Bed/Room Type: Standard bibiana Room Assignment: 413(07/15/22 20:56) cg Diagnosis - Chest pain, unspecified bibiana - Weakness bibiana - Anorexia bibiana - Obesity, unspecified bibiana - Other cholelithiasis without obstruction cp Forms: - Medication Reconciliation Form bibiana - SBAR form bibiana Signatures: Dispatcher [employer] EDLopez Carter MD MD cha Smirch, Shelby, RN RN ss Lopez Velázquez PA PA Laurel Sarmiento RN RN cg Leal, Jahala, RN RN jlGertrudis Velarde 5 Corrections: (The following items were deleted from the chart) 20:56 19:01 bibiana cg
[2022-07-15 19:14] LABS: Absolute Lymphocytes (CBC) 2.3 K/uL (0.7-4.9); Hematocrit 36.6 % (36.0-45.0); MCV 92.2 fL (80-100); MPV 7.7 fL (7.6-11.3); RBC Red Blood Cell Count 3.97 M/uL (3.86-4.86)
[2022-07-15 19:19] LABS: Protime INR 1.14
--- NOTE | 2022-07-15 19:24 | RAD REPORT ---
EXAM DESCRIPTION: Griffint Single View07/15/2022 7:11 pm CLINICAL HISTORY: CHEST PAIN COMPARISON: Chest Single View dated 03/28/2020; Chest Single View dated 03/16/2018; Chest Single View dated 04/13/2017; Chest Pa And Lat (2 Views) dated 10/09/2015No comparisons TECHNIQUE: Portable AP view of the chest. FINDINGS: Decreased inspiratory effort, patient rotation, and lordotic positioning limit evaluation. The lungs are clear.Perihilar streaky opacities, could relate to atelectasis or central interstitial prominence. No pneumothorax or effusion. The heart is mildly enlarged in size. Mediastinal contours are within normal limits allowing for limitations mentioned above. IMPRESSION: No evidence of an acute pulmonary process. Suggestion of central atelectatic changes versus mild central venous congestion. Mild cardiomegaly.
[2022-07-15 19:50] LABS: SARS-COV-2 RT PCR NEGATIVE (NEGATIVE)
[2022-07-15 20:06] LABS: Albumin 2.9 g/dL (3.4-5.0); Bilirubin Direct 0.4 mg/dL (0-0.2); Bilirubin Total 0.8 mg/dL (0.2-1.0); Magnesium 1.9 mg/dL (1.6-2.4); Potassium 3.8 mmol/L (3.5-5.1); Protein, Total 6.3 g/dL (6.4-8.2); Troponin High Sensitivity 19.4 pg/mL (<58.9)
[2022-07-15] MEDS ORDERED: ASPIRIN 81 MG CHEWABLE TABLET ONE (20:24)
[2022-07-15] MEDS ORDERED: METOPROLOL TAR 25 MG TAB ONE (20:25)
[2022-07-15] MEDS ORDERED: NA CHLORIDE 0.9% 1,000 ML ONE (20:25)
[2022-07-15] MEDS ORDERED: FAMOTIDINE 20 MG/2 ML VIAL IV ONE (20:25)
[2022-07-15] MEDS ORDERED: ENOXAPARIN 60 MG/0.6 ML SQ ONE (20:25)
[2022-07-15] MEDS ORDERED: NA CHLORIDE 0.9% 500 ML ONE (20:25)
[2022-07-15] MEDS ORDERED: NA CHLORIDE 0.9% 100 ML ONE (21:17)
[2022-07-15] MEDS ORDERED: PIPERACIL/TAZO 3.375 GM VIAL IV ONE (21:17)
--- NOTE | 2022-07-15 21:27 | RAD REPORT ---
EXAM DESCRIPTION: US - Abdomen Exam Limited - 07/15/2022 8:44 pm CLINICAL HISTORY: elevated liver enzymes COMPARISON: No comparisonsAbdomen Pelvis W Contrast dated 07/11/2019 TECHNIQUE: Sonographic grayscale and color flow images of the right upper quadrant were obtained. FINDINGS: The gallbladder demonstrates numerous dependent shadowing gallstones. No pericholecystic f luid or gallbladder wall thickening. The common bile duct is normal measuring 1 mm. The liver demonstrates no findings of intrahepatic biliary dilatation. IMPRESSION: Cholelithiasis. No other sonographic findings to suggest acute cholecystitis. No intra or extrahepatic biliary ductal dilation.
[2022-07-15 22:32] VITALS: BMI 26.1
[2022-07-15] MEDS ORDERED: ONDANSETRON 4 MG/2 ML VIAL IV PRN (22:36)
[2022-07-15] MEDS ORDERED: ACETAMINOPHEN 325 MG TABLET PO PRN (22:36)
[2022-07-15] MEDS ORDERED: FAMOTIDINE 20 MG/2 ML VIAL IV SCH (22:36)
[2022-07-16] MEDS ORDERED: PIPER TAZO 3.375 GM in NA CHLORIDE 0.9% 100 ML IV SCH (01:00)
[2022-07-16] MEDS ORDERED: METOPROLOL TAR 25 MG TAB PO SCH (06:00)
[2022-07-16] MEDS ORDERED: DOCUSATE NA 100 MG CAP PO PRN (08:13)
[2022-07-16] MEDS ORDERED: ACETAMINOPHEN 325 MG TABLET PO PRN (08:13)
[2022-07-16] MEDS ORDERED: PROMETHAZINE 25 MG TABLET PO PRN (08:13)
--- NOTE | 2022-07-16 08:23 | P.HP ---
Certification for Inpatient Patient admitted to: Inpatient With expected LOS: >2 Midnights Patient will require the following post-hospital care: Fpc Practitioner: I am a practitioner with admitting privileges, knowledge of patient current condition, hospital course, and medical plan of care. Services: Services provided to patient in accordance with Admission requirements found in Title 42 Section 412.3 of the Code of Federal Regulations Patient History Date of Service: 07/16/22 Primary Care Provider: Veronica Reason for admission: chest pain History of Present Illness: Patient is a care home patient of mine. Who resides in [place]. she has htn, obsessive compulsive disorder, hyperlipidemia. Wheelchair bound from scoliosis and arthritis. She was complaining of chest pain and was sent to the ER. She had a negative troponins and was placed in observation. Dr. Mariscal was consulted for non obstructive cholelithiasis. He did find an incarcerated umbilical hernia. which may be the source of her chest pain. Allergies codeine Allergy (Verified 07/15/22 22:40) unknown NSAIDS (Non-Steroidal Anti-Inflamma Allergy (Verified 07/15/22 22:40) UNKNOWN Home Medications: Acetaminophen [Tylenol] 325 mg PO PRN PRN 07/26/19 Amlodipine [Norvasc] 5 mg PO DAILY 07/26/19 Docusate Sodium 100 mg PO Q12HP PRN 07/26/19 Lisinopril [Zestril] 20 mg PO DAILY 07/26/19 Melatonin/Pyridoxine [Melatonin 5 mg Tablet] 2 each PO BEDTIME 07/26/19 Metoprolol Succinate 25 mg PO [id number] 07/26/19 Pravastatin Sodium 40 mg PO BEDTIME 07/26/19 Divalproex [Depakote Sprinkle] 125 mg PO BID 07/16/22 Fenofibrate [Tricor] 145 mg PO DAILY 07/16/22 Niacin 500 mg PO BEDTIME 07/16/22 Nystatin 15 gm TP Q8HP PRN 07/16/22 Omeprazole 20 mg PO DAILY 07/16/22 Paroxetine HCl [Paxil] 30 mg PO BEDTIME 07/16/22 Promethazine Tab [Phenergan] 25 mg PO Q6HP PRN 07/16/22 - Past Medical/Surgical History -: malnutrition -: scoliosis -: insomnia -: osteoarthritis of alyssia knee -: HLD -: bipolar, anxiety, depression -: GERD - Social History Smoking Status: Unknown if ever smoked Place of Residence: Long Term Review of Systems 10-point ROS is otherwise unremarkable Cardiovascular: Chest Pain Physical Examination - Vital Signs Temperature: 97.1 F Blood Pressure: 95/49 Pulse: 64 Respirations: 18 Pulse Ox (%): 95 - Physical Exam General: Alert, In no apparent distress HEENT: Atraumatic, PERRLA, Mucous membr. moist/pink, EOMI, Sclerae nonicteric Neck: Supple, 2+ carotid pulse no bruit, No LAD, Without JVD or thyroid abnormality Respiratory: Clear to auscultation bilaterally, Normal air movement Cardiovascular: Regular rate/rhythm, Normal S1 S2 Gastrointestinal: Normal bowel sounds, No tenderness, Masses (no reducable abdominal hernia just above the umbilicus. ) Musculoskeletal: No tenderness Integumentary: No rashes Neurological: Normal gait, Normal speech, Normal strength at 5/5 x4 extr, Normal tone, Normal affect Lymphatics: No axilla or inguinal lymphadenopathy - Studies Laboratory Data (last 24 hrs) 07/15/22 19:00: PT 12.5, INR 1.14 07/15/22 19:00: WBC 6.30, Hgb 12.0, Hct 36.6, Plt Count 328 07/15/22 19:00: Sodium 133 L, Potassium 3.8, BUN 23 H, Creatinine 0.94, Glucose 82, Magnesium 1.9, Total Bilirubin 0.8, AST 62 H, ALT 30, Alkaline Phosphatase 48, Lipase 110 Assessment and Plan - Problems (Diagnosis) (1) Chest pain Current Visit: Yes Status: Acute Plan: Patient has negative troponins. the patient has no active pain Qualifiers: Chest pain type: unspecified Qualified Code(s): R07.9 - Chest pain, unspecified (2) Umbilical hernia Current Visit: Yes Status: Acute Plan: Will plan for surgery. tomorrow with Dr. Mariscal. NPO after midnight Qualifiers: Obstruction and gangrene presence: without obstruction or gangrene Qualified Code(s): K42.9 - Umbilical hernia without obstruction or gangrene (3) HTN (hypertension) Current Visit: Yes Status: Acute Plan: continue amlodipine and lisinopril. Will hold the metoprolol for now Qualifiers: Hypertension type: primary hypertension Qualified Code(s): I10 - Essential (primary) hypertension (4) Hyperlipidemia Current Visit: Yes Status: Acute Plan: on pravastatin. Has regular blood work in [place]. No elevated liver enzymes Qualifiers: Hyperlipidemia type: pure hypercholesterolemia Qualified Code(s): E78.00 - Pure hypercholesterolemia, unspecified; E78.0 - Pure hypercholesterolemia (5) Obsessive compulsive disorder Current Visit: Yes Status: Acute Plan: Patient can be difficult to discuss. Have called her next of kin Francoise Middleton. Will try to get consent Qualifiers: Obsessive-compulsive disorder type: hoarding disorder Qualified Code(s): F42.3 - Hoarding disorder Discharge Plan: Home Plan to discharge in: 24 Hours - Advance Directives Does patient have a Living Will: No Does patient have a Durable POA for Healthcare: No - Code Status/Comfort Care Code Status Assessed: Yes Code Status: Full Code Physician Review: Patient Assessed, Agree with Above Assessment and Plan Critical Care: No Time Spent Managing Pts Care (In Minutes): 20
[2022-07-16] MEDS ORDERED: HOME MED 1 EA UNK (Omeprazole [Omeprazole] 20 MG Tablet.Dr) PO SCH (09:00)
[2022-07-16] MEDS: AMLODIPINE 5 MG TAB PO SCH (09:40)
[2022-07-16] MEDS: PANTOPRAZOLE 40MG TABLET PO SCH (09:40)
[2022-07-16] MEDS: lisinopriL 20 MG TAB PO SCH (09:41)
[2022-07-16] MEDS: DIVALPROEX NA 125 MG CAP PO SCH ×2 (09:41→20:57)
[2022-07-16] MEDS: ASPIRIN EC 81 MG TAB PO SCH (09:41)
--- NOTE | 2022-07-16 15:16 | CON ---
Date of Consultation: 07/16/2022 Reason For Consultation: Chest pain. History Of Present Illness: This is a 81-year-old female, long term resident. She has severe sco liosis and arthritis, wheelchair-bound, comes in with chest pain. She had that pain while at the [facility] home. She was sent to the ER. The patient is very poor historian and unable to answer question s properly; however, denies active chest pain at the present time. Past Medical History: As outlined above in the HPI. Medications: Refer to reconciliation sheet for detailed list. Allergies: CODEINE AND NSAIDS. Family History: No premature coronary artery disease or cancer. Social History: She does not smoke or drink. Does not use any drugs. Review of Systems: All systems reviewed and they were negative except what mentioned in HPI. Physical Examination: Vital Signs: Reviewed. Head and Neck: Pupils are equal, reactive to light. Intact eye movements. No JVD. No cervical lym phadenopathy. Neck is supple. Thyroid is not enlarged. Lungs: Clear to auscultation bilaterally. No rhonchi, wheezing, or crackles. No accessory muscle u se. Heart: Regular rate and rhythm. No extra sounds. Abdomen: Soft, nontender. Bowel sounds positive. No organomegaly. No masses or hernia. No rigidi ty or rebound. Extremities: No edema, clubbing, or cyanosis. Intact pulses. Skin: No rash. Neurologic: Alert, awake, oriented x3. No acute focal deficits appreciated. Investigations: First troponin is negative. BUN 23, creatinine 0.94. NT-proBNP is 1500, hemoglobin is 12. Assessment And Recommendations: 1.Chest pain. First cardiac enzymes negative. Draw two more sets of cardiac enzymes and i they are negative, then obtain Lexiscan nuclear stress test and an echo tomorrow. 2.Hypertension. Blood pressure is controlled. Continue home medications. 3.Dyslipidemia. Continue statin. SR/MODL Voice ID: [id number] Report ID: [id number]
--- NOTE | 2022-07-16 16:31 | EKG ---
Test Date: 2022-07-15 Test Time: 18:35:19 [employer] Salesman: KULWINDER MEASUREMENT RESULTS: Intervals: Rate: 63 SD: 150 QRSD: 76 QT: 430 QTc: 440 [place]: P: 54 SD: 150 QRS: 35 T: 63 INTERPRETIVE STATEMENTS: Sinus rhythm with premature atrial complexes with aberrant conduction Nonspecific T wave abnormality Abnormal ECG No previous ECG available for comparison Electronically Signed On 07-16-22 16:29:12 PEDIATRIC LICENSED PRACTICAL NURSE by Gary Murrell
[2022-07-16] MEDS: ATORVASTATIN 10 MG TAB PO SCH (20:57)
[2022-07-16] MEDS: PARoxetine HCL 10 MG TAB PO SCH (20:57)
[2022-07-16] MEDS ORDERED: HOME MED 1 EA UNK (Pravastatin Sodium [Pravastatin Sodium] 40 MG Tablet) PO SCH (21:00)
[2022-07-17] MEDS ORDERED: REGADENOSON 0.4 MG/5 ML SYR IV ONE (07:46)
--- NOTE | 2022-07-17 08:24 | P.PN ---
Subjective Date of Service: 07/17/22 Primary Care Provider: Veronica Chief Complaint: chest pain Subjective: No new changes Review of Systems 10-point ROS is otherwise unremarkable Physical Examination - Vital Signs Temperature: 97.6 F Blood Pressure: 141/65 Pulse: 70 Respirations: 18 Pulse Ox (%): 95 - Physical Exam General: Alert, In no apparent distress HEENT: Atraumatic, PERRLA, EOMI Neck: Supple, JVD not distended Respiratory: Clear to auscultation bilaterally, Normal air movement Cardiovascular: Regular rate/rhythm, Normal S1 S2 Gastrointestinal: Normal bowel sounds, No tenderness Musculoskeletal: No tenderness Integumentary: No rashes Neurological: Normal speech, Normal tone, Normal affect Lymphatics: No axilla or inguinal lymphadenopathy Assessment And Plan - Current Problems (Diagnosis) (1) Chest pain Current Visit: Yes Status: Acute Plan: Patient has negative troponins. the patient has no active pain 2. plans for stress test today Qualifiers: Chest pain type: unspecified Qualified Code(s): R07.9 - Chest pain, unspecified (2) Umbilical hernia Current Visit: Yes Status: Acute Plan: Will plan for surgery. tomorrow with Dr. Mariscal. NPO after midnight 07/17 plans for surgery today after stress test. Qualifiers: Obstruction and gangrene presence: without obstruction or gangrene Qualified Code(s): K42.9 - Umbilical hernia without obstruction or gangrene (3) HTN (hypertension) Current Visit: Yes Status: Acute Plan: continue amlodipine and lisinopril. Will hold the metoprolol for now Qualifiers: Hypertension type: primary hypertension Qualified Code(s): I10 - Essential (primary) hypertension (4) Hyperlipidemia Current Visit: Yes Status: Acute Plan: on pravastatin. Has regular blood work in [place]. No elevated liver enzymes Qualifiers: Hyperlipidemia type: pure hypercholesterolemia Qualified Code(s): E78.00 - Pure hypercholesterolemia, unspecified; E78.0 - Pure hypercholesterolemia (5) Obsessive compulsive disorder Current Visit: Yes Status: Acute Plan: Patient can be difficult to discuss. Have called her next of kin Francoise Middleton. Will try to get consent Qualifiers: Obsessive-compulsive disorder type: hoarding disorder Qualified Code(s): F42.3 - Hoarding disorder Discharge Plan: Snf Plan to discharge in: 24 Hours - Code Status/Comfort Care Code Status Assessed: No Code Status: Full Code Physician Review: Patient Assessed, Agree with Above Assessment and Plan Critical Care: No Time Spent Managing PTS Care (In Minutes): 20
[2022-07-17] MEDS: DIVALPROEX NA 125 MG CAP PO SCH ×2 (09:00→21:24)
[2022-07-17] MEDS: AMLODIPINE 5 MG TAB PO SCH (09:00)
[2022-07-17] MEDS: ASPIRIN EC 81 MG TAB PO SCH (09:00)
[2022-07-17] MEDS: PANTOPRAZOLE 40MG TABLET PO SCH (09:00)
[2022-07-17] MEDS: lisinopriL 20 MG TAB PO SCH (09:00)
--- NOTE | 2022-07-17 11:50 | RAD REPORT ---
EXAM DESCRIPTION: NM - Rest Stress Cardiac Imaging - 07/17/2022 11:36 am CLINICAL HISTORY: CP Chest pain. COMPARISON: Chest Single View dated 07/15/2022 TECHNIQUE: The patient was administered approximately 10.3 mCi of Tc 99m Sestamibi prior to resting SPECT imaging of the heart. The patient was then administered approximately 29.8 mCi of Tc 99m Sestam ibi following exercise or pharmacologic stress. Multiplanar SPECT images were reviewed. FINDINGS: No stress induced ischemic defect is seen to suggest stress induced myocardial ischemia. F ixed defects involving the mid to basilar regions of the lateral wall and left ventricular septum, as well as the basal aspect of the anterior wall. Given the relatively low and systolic velocity, these could be at least in part be artifactual, however they suggest myocardial infarcts. The end diastolic volume is 74 ml, the end systolic volume is 37 ml, and the ejection fraction is 49 %. IMPRESSION: No evidence of stress-induced myocardial ischemia. Fixed defect involving the mid to basilar lateral and septal mcgee, as well as the basal region of th e anterior wall, raising concern for myocardial infarcts. Left ventricular Ejection fraction is at the lower limit of normal, 49%.
[2022-07-17] MEDS ORDERED: CEFAZOLIN SODIUM 1 GM/VIAL ONE (12:40)
[2022-07-17] MEDS ORDERED: FENTANYL CITR 100 MCG/2 ML ONE (12:50)
[2022-07-17] MEDS ORDERED: propofoL 200 MG/20 ML VIAL IV ONE (12:51)
[2022-07-17] MEDS ORDERED: LIDOCAINE 2% MPF 5 ML VIAL ONE (12:51)
[2022-07-17] MEDS ORDERED: ROCURONIUM 50 MG/5 ML VIAL IV ONE (12:51)
[2022-07-17] MEDS ORDERED: NS 0.9% VIAL 10 ML ONE (13:30)
[2022-07-17] MEDS ORDERED: SUCCINYLCHOLINE 20 MG/ML (10 ML) IV ONE (14:07)
--- NOTE | 2022-07-17 14:13 | TREADPHA ---
DX: CHEST PAIN Date of Study: 07/17/2022 Ht: 4' 10 " Wt: 125 lb 0 oz Consulting Physician: NIKUNJ MEDICATIONS: TYLENOL, NORVASC, ASPIRIN, LIPITOR, DEPAKOTE, COLACE, PRINIVIL, ZOFRAN, PROTONIX, PAXIL HISTORY: 81 YEAR OLD FEMALE WITH COMPLAINTS OF CHEST PAIN. HISTORY OF HYPERLIPIDEMIA, BIPOLAR, ANXIETY, DEPRESSION AND GERD PHYSICIAL EXAMINATION: RESTING B.P.: 124/53 RESTING H.R.: 61 RESTING EKG: NORMAL SINUS RHYTHM WITH DIFFUSE T WAVE ABNORMALITY PROTOCOL: PHARMACOLOGIC EXERCISE TIME: 3:30 B.P. AT [place] STRESS: 140/73 IMPRESSION: LEXISCAN STRESS TEST PERFORMED ORDERED PER PHYSICIAN. CARDIOLITE ADMINISTERED PER PROTOCOL. NO SUPRAVENTRICULAR TACHYCARDIA, VENTRICULAR TACHYCARDIA. NO ARRHYTHMIAS. NO CHEST PAIN. SEE NUCLEAR MEDICINE REPORT. PATIENT COMPLANTS OF HEADACHE AND NECK PAIN DURING PROCEDURE. PREMATURE VENTRICULAR COMPLEXES NOTED POST PROCEDURE. NO ELECTROCARDIOGRAM CHANGES WITH LEXISCAN.
--- NOTE | 2022-07-17 14:20 | ECHO ---
HEIGHT: 4 ft 10 in WEIGHT: 125 lb 0 oz DATE OF STUDY: 07/17/[address]: Gary Murrell 2-DIMENSIONAL: YES M.MODE: YES DOPPLER: YES COLOR FLOW: YES TDS: YES PORTABLE: YES DEFINITY: BUBBLE STUDY: DIAGNOSIS: CHEST PAIN CARDIAC HISTORY: CATHERIZATION: SURGERY: PROSTHETIC VALVE: PACEMAKER: MEASUREMENTS (cm) DIASTOLIC (NORMALS) SYSTOLIC (NORMALS) IVSd 0.9 (0.6-1.2) LA Diam 2.5 (1.9-4.0) LVEF 58% LVIDd 4.1 (3.5-5.7) LVIDs 2.8 (2.0-3.5) %FS 30% LVPWd 1.0 (0.6-1.2) Ao Diam 2.4 (2.0-3.7) 2 DIMENSIONAL ASSESSMENT: RIGHT ATRIUM: NORMAL LEFT ATRIUM: NORMAL RIGHT VENTRICLE: NORMAL LEFT VENTRICLE: NORMAL TRICUSPID VALVE: MILD TRICUSPID REGURGITATION MITRAL VALVE: NORMAL PULMONIC VALVE: NORMAL AORTIC VALVE: NORMAL PERICARDIAL EFFUSION: NONE AORTIC ROOT: NORMAL LEFT VENTRICULAR WALL MOTION: NORMAL DOPPLER/COLOR FLOW: MILD TRICUSPID REGURGITATION COMMENTS: 1. NORMAL LEFT VENTRICULAR EJECTION FRACTION 55-60% 2. NORMAL WALL MOTION 3. MILD TRICUSPID REGURGITATION TECHNOLOGIST: ISABEL SOSA
--- NOTE | 2022-07-17 14:46 | P.OP ---
Preoperative diagnosis: Incarcerated Ventral Periumbilical Hernia Postoperative diagnosis: Incarcerated Ventral Periumbilical Hernia Primary procedure: Laparosocopic Umbilical Hernia Repair with mesh Anesthesia: GETA + Local Estimated blood loss: <5cc Specimen: none Findings: incarcerated omental hernia - adipose Complications: None Implants: Ventralite ST Mesh 11.4cm Round, Sorbafix 45 tacks Transferred to: Recovery Room Condition: Good
[2022-07-17] MEDS ORDERED: HYDROCODONE/APAP 5/325 MG TAB PO PRN (14:53)
[2022-07-17] MEDS ORDERED: EPHEDRINE SULF 50 MG/ML VIAL ONE (14:54)
[2022-07-17] MEDS ORDERED: GLYCOPYRROLATE 0.2 MG/ML SYR ONE (15:05)
[2022-07-17] MEDS ORDERED: NEOSTIGMINE 1 MG/ML -10 ML VIAL ONE (15:06)
[2022-07-17] MEDS ORDERED: Ringers Lactate 1,000 ML IV ONE (15:39)
[2022-07-17] MEDS ORDERED: ONDANSETRON 4 MG/2 ML VIAL ONE (15:43)
[2022-07-17 15:57] VITALS: O2SAT 96
--- NOTE | 2022-07-17 18:41 | PN ---
Date of Progress Note: 07/17/2022 Subjective: Seen by bedside. No further chest pain. Review of Systems: No chest pain, shortness of breath, orthopnea, cough, nausea, vomiting, or diarrhea. All other syste ms reviewed and they were negative. Physical Examination: Vital Signs: Temperature is 97.1, pulse 75, breathing 16, blood pressure is 94/59, and saturating 96 % on room air. General: A pleasant elderly female, in no apparent distress. Head And Neck: Pupils are equal and reactive to light. Intact eye movements. No JVD. No cervical lymphadenopathy. Neck is supple. Thyroid is not enlarged. Lungs: Clear to auscultation bilaterally. No rhonchi, wheezing, or crackles. No accessory muscle u se. Heart: Regular rate and rhythm. No extra sounds. Abdomen: Soft, nontender. Bowel sounds positive. No organomegaly. No masses or hernia. No rigidi ty or rebound. Extremities: No edema, clubbing, or cyanosis. Intact pulses. Skin: No rash. Neurologic: Alert, awake, and oriented x3. No acute focal deficits appreciated. Investigations: Labs are pending. Assessment/recommendation: 1.Chest pain. Cardiac enzymes are negative. Stress test was negative and echo showed normal ejecti on fraction. This is likely noncardiac. The patient can proceed for surgery today and Cardiology wi ll sign off the case. 2.Elevated NT-proBNP. She probably has chronic diastolic heart failure, but she appears to be euvolemic. We can follow the patient on outpatient basis. SR/MODL Voice ID: [id number] Report ID: [id number]
--- NOTE | 2022-07-17 18:53 | OP ---
Date of Procedure: 07/17/2022 Surgeon: Akhil Mariscal MD, Preoperative Diagnosis: Incarcerated ventral periumbilical hernia. Postoperative Diagnosis: Incarcerated ventral periumbilical hernia. Procedure Performed: Laparoscopic umbilical hernia repair with mesh. Anesthesia: General endotracheal with local with 0.5% Marcaine. Estimated Blood Loss: Less than 5 cc. Specimen: None. Findings: Incarcerated omental hernia with adipose contained. Complications: None. Implants: Bard Ventralight ST mesh with Echo Positioning System, 11.4 cm round mesh utilized. Sorba Fix absorbable fixation tacks, 45 tacks utilized. Disposition: The patient transferred to recovery room in good condition. Procedure In Detail: After informed was obtained, the patient was brought to the operating room and prepped and draped in the usual sterile fashion. After adequate anesthesia was achieved, I made an i ncision in the left upper quadrant. A 5 mm 0-degree optical trocar was introduced in the abdomen wit hout evidence of any complication. Insufflation was obtained to 15 mmHg at this time. There was no injury to vital structures upon entry into the abdomen. Additional trocar was placed in the left low er quadrant. This was similarly anesthetized and sharply incised. A 5 mm trocar was placed under di rect visualization without evidence of any complication. I used the LigaSure device to take down att achments from the omentum to the anterior abdominal wall, where an incarcerated periumbilical ventral hernia was appreciated. It was in the supraumbilical position just off midline. I used a combinati on of sharp and blunt dissection with gentle traction to remove the omental attachments and contents from the hernia. Once all of this was returned to their normal anatomic position intraabdominally, I closed defect imbricating the hernia sac using an Endo Stitch with an 0 V-Loc suture with good appos ition of the tissues, imbricating the hernia sac quite well. At this point, the Bard Ventralight ST mesh with Echo Positioning system was brought into the field, 11.4 cm mesh utilized, placed in the ce ntral portion of the defect and deployed at this point, through a stab incision at the central portio n of the defect in the supraumbilical position, after appropriately anesthetizing the skin. I then d eployed the balloon system and secured it to the anterior abdominal wall using SorbaFix absorbable fi xation tacks without evidence of complication. The balloon deployment system was then removed. A se cond crown of SorbaFix absorbable fixation tacks was used to adhere the mesh to the anterior bowel wa ll with good apposition of the tissues. At this point, the balloon deployment was found to be intact on the back table and the mesh was in good apposition to the anterior abdominal wall. The patient w as positioned slightly rolled away from the midline and the Zacarias-Venkata suture passer was used to close the 12 mm defect on the left lower quadrant trocar site with a Zacarias-Venkata suture passer w ith 0 Vicryl in interrupted fashion with good approximation of tissues. The abdomen was then complet aisha desufflated under direct visualization without evidence of any complication. Remaining trocars w ere removed. All skin incisions were then copiously irrigated and closed with a 4-0 Monocryl in a ru nning fashion. Dermabond was placed over top. The patient tolerated the procedure without evidence of any complication and transferred to PACU in good condition. All counts were correct at the end of the case. JUNAID/KATHERINE Voice ID: [id number] Report ID: [id number]
[2022-07-17] MEDS: PARoxetine HCL 10 MG TAB PO SCH (21:25)
[2022-07-17] MEDS: ATORVASTATIN 10 MG TAB PO SCH (21:25)
[2022-07-18 06:38] VITALS: TEMP 97.1
[2022-07-18] MEDS ORDERED: Ringers Lactate 1,000 ML IV ONE (07:40)
--- NOTE | 2022-07-18 10:11 | P.PN ---
Subjective Date of Service: 07/18/22 Primary Care Provider: Veronica Chief Complaint: chest pain Subjective: Improving (no acute issues) Physical Examination - Vital Signs Temperature: 97.1 F Blood Pressure: 105/51 Pulse: 83 Respirations: 19 Pulse Ox (%): 91 - Physical Exam General: In no apparent distress, Other (@ baseline) Gastrointestinal: Other (soft, mild appropriate TTP, ND, binder in place, incisions clean and dry) Assessment And Plan Physician Review: Patient Assessed, Agree with Above Assessment and Plan
[2022-07-18] MEDS: lisinopriL 20 MG TAB PO SCH (10:25)
[2022-07-18] MEDS: AMLODIPINE 5 MG TAB PO SCH (10:25)
[2022-07-18] MEDS: DIVALPROEX NA 125 MG CAP PO SCH (10:25)
[2022-07-18] MEDS: ASPIRIN EC 81 MG TAB PO SCH (10:25)
[2022-07-18] MEDS: PANTOPRAZOLE 40MG TABLET PO SCH (10:26)
--- NOTE | 2022-07-18 10:56 | P.DS ---
Admission Date: 07/16/22 Discharge Date: 07/18/22 Primary Care Provider: Veronica Disposition: ROUTINE DISCHARGE Discharge Condition: GOOD Reason for Admission: chest pain - Problems (1) Chest pain Current Visit: Yes Status: Acute Qualifiers: Chest pain type: unspecified Qualified Code(s): R07.9 - Chest pain, unspecified (2) Umbilical hernia Current Visit: Yes Status: Acute Qualifiers: Obstruction and gangrene presence: without obstruction or gangrene Qualified Code(s): K42.9 - Umbilical hernia without obstruction or gangrene (3) HTN (hypertension) Current Visit: Yes Status: Acute Qualifiers: Hypertension type: primary hypertension Qualified Code(s): I10 - Essential (primary) hypertension (4) Hyperlipidemia Current Visit: Yes Status: Acute Qualifiers: Hyperlipidemia type: pure hypercholesterolemia Qualified Code(s): E78.00 - Pure hypercholesterolemia, unspecified; E78.0 - Pure hypercholesterolemia (5) Obsessive compulsive disorder Current Visit: Yes Status: Acute Qualifiers: Obsessive-compulsive disorder type: hoarding disorder Qualified Code(s): F42.3 - Hoarding disorder Brief History of Present Illness: Patient is a residential patient of [facility]. Who resides in [place]. she has htn, obsessive compulsive disorder, hyperlipidemia. Wheelchair bound from scoliosis and arthritis. She was complaining of chest pain and was sent to the ER. She had a negative troponins and was placed in observation. Dr. Mariscal was consulted for non obstructive cholelithiasis. He did find an incarcerated umbilical hernia. which may be the source of her chest pain. Hospital Course: Patient was admitted for chest pain. Had a negative stress test. Had an abdominal hernia. Was fixed laproscopically by Dr Mariscal. Will discharge her to the residential. I will follow up with her there. Vital Signs/Physical Exam: Temp Pulse Resp BP Pulse Ox 97.1 F 83 19 105/51 L 91 07/18/22 10:11 07/18/22 10:11 07/18/22 10:11 07/18/22 10:11 07/18/22 10:11 General: Alert, In no apparent distress HEENT: Atraumatic, PERRLA, EOMI Neck: Supple, JVD not distended Respiratory: Clear to auscultation bilaterally, Normal air movement Cardiovascular: Regular rate/rhythm, Normal S1 S2 Gastrointestinal: Normal bowel sounds, No tenderness Musculoskeletal: No tenderness Integumentary: No rashes Neurological: Normal speech, Normal tone, Normal affect Lymphatics: No axilla or inguinal lymphadenopathy Laboratory Data at Discharge: WBC 6.30 K/uL (4.3-10.9) 07/15/22 19:00 Hgb 12.0 g/dL (12.0-15.0) 07/15/22 19:00 Hct 36.6 % (36.0-45.0) 07/15/22 19:00 Plt Count 328 K/uL (152-406) 07/15/22 19:00 PT 12.5 SECONDS (9.5-12.5) 07/15/22 19:00 INR 1.14 07/15/22 19:00 Sodium 133 mmol/L (136-145) L 07/15/22 19:00 Potassium 3.8 mmol/L (3.5-5.1) 07/15/22 19:00 BUN 23 mg/dL (7-18) H 07/15/22 19:00 Creatinine 0.94 mg/dL (0.55-1.02) 07/15/22 19:00 Glucose 82 mg/dL (74-106) 07/15/22 19:00 Magnesium 1.9 mg/dL (1.6-2.4) 07/15/22 19:00 Total Bilirubin 0.8 mg/dL (0.2-1.0) 07/15/22 19:00 AST 62 U/L (15-37) H 07/15/22 19:00 ALT 30 U/L (13-56) 07/15/22 19:00 Alkaline Phosphatase 48 U/L (45-117) 07/15/22 19:00 Lipase 110 U/L (73-393) 07/15/22 19:00 Home Medications: Acetaminophen [Tylenol] 325 mg PO PRN PRN 07/26/19 Amlodipine [Norvasc] 5 mg PO DAILY 07/26/19 Docusate Sodium 100 mg PO Q12HP PRN 07/26/19 Lisinopril [Zestril] 20 mg PO DAILY 07/26/19 Melatonin/Pyridoxine [Melatonin 5 mg Tablet] 2 each PO BEDTIME 07/26/19 Metoprolol Succinate 25 mg PO [id number] 07/26/19 Pravastatin Sodium 40 mg PO BEDTIME 07/26/19 Divalproex [Depakote Sprinkle] 125 mg PO BID 07/16/22 Fenofibrate [Tricor] 145 mg PO DAILY 07/16/22 Niacin 500 mg PO BEDTIME 07/16/22 Nystatin 15 gm TP Q8HP PRN 07/16/22 Omeprazole 20 mg PO DAILY 07/16/22 Paroxetine HCl [Paxil] 30 mg PO BEDTIME 07/16/22 Promethazine Tab [Phenergan] 25 mg PO Q6HP PRN 07/16/22 Diet: AHA Activity: Ad daisy Followup: Akhil Mariscal MD [ACTIVE - CAN ADMIT] - Physician Review: Patient Assessed, Agree with Above Assessment and Plan Time spent managing pt's care (in minutes): 30
[2022-07-18 11:32] VITALS: BP 108/51
== END 2022-07-18 16:19 | DRG 355 ==
LOC: ER 18:18 → ERHOLD 19:10 → 4TH 21:24 → OBSVTOIN 07-16 17:11
PROVIDERS: ADMIT Internal Medicine; ATTEND Internal Medicine
PROC: 0WUF4JZ Supplement Abdominal Wall with Synthetic Substitute, Percutaneous Endoscopic Approach (ICD-10-PCS; principal; 2022-07-17 13:30)
DX: K43.6 Other and unspecified ventral hernia with obstruction, without gangrene (principal); I10 Essential (primary) hypertension; F42.3 Hoarding disorder; F60.5 Obsessive-compulsive personality disorder; M41.9 Scoliosis, unspecified; M19.90 Unspecified osteoarthritis, unspecified site; K21.9 Gastro-esophageal reflux disease without esophagitis; E78.00 Pure hypercholesterolemia, unspecified; E66.9 Obesity, unspecified; K80.20 Calculus of gallbladder without cholecystitis without obstruction; Z99.3 Dependence on wheelchair; Z88.5 Allergy status to narcotic agent; Z88.8 Allergy status to other drugs, medicaments and biological substances; Z68.26 Body mass index [BMI] 26.0-26.9, adult; Z79.899 Other long term (current) drug therapy; Z20.822 Contact with and (suspected) exposure to COVID-19
CPT/HCPCS: 0240U; 36415; 71045; 76705; 78452; 80048; 80076; 80164; 83690; 83735; 83880; 84484; 85025; 85610; 93005; 93017; 93306; 96372; 96374; 96375; 99285; A4216; A9500; C1781; G0378; J0330; J0690; J1650; J2001; J2405; J2543; J2704; J2710; J2785; J3010; J7030; J7040; J7120